=== PATIENT | male | born 1985 | race Caucasian/White ===

== ENCOUNTER 2022-08-24 09:33 | Emergency (ER) | payer MEDICAID, SELFPAY ==
[2022-08-24] VITALS (21 sets, daily range): BP systolic 127–141; BP diastolic 56–93; PULSE 100–114; RESP 16–20; TEMP 36.6; O2SAT 97–99; BMI 23.0
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
[2022-08-24 11:00] LABS: HCO3 VBG 27 mmol/L (21-28); Lactate* 0.8 mmol/L (0.5-1.9); PCO2 VBG 44 mmHG (40-50); PO2 VBG 46.3 mmHG (25-47); pH VBG 7.387 (7.32-7.43)
[2022-08-24 11:02] LABS: Basophils Absolute Auto 0.02 K/uL (0.00-0.30); Basophils Percent Auto 0.3 % (0.0-3.0); Eosinophils Absolute Auto 0.27 K/uL (0.00-0.50); Eosinophils Percent Auto 4.7 % (0.0-7.0); Hematocrit 38.8 % (37.0-53.0); Lymphocytes Absolute Auto 2.16 K/uL (0.90-2.90); Lymphocytes Percent Auto 37.6 % (20-44); Mean Corpuscular HGB Conc 34 gm/dL (32-36); Mean Corpuscular Hemoglobin 27 pg (26-34); Mean Corpuscular Volume 81 fL (80-100); Monocytes Percent Auto 16.9 % (0.0-11.0); Neutrophils Percent Auto 40.5 % (42.0-72.0); Platelet Count* 183 K/uL (140-440); RDW Coefficient of Variation % 13.6 % (11.5-15.5); Red Blood Count 4.82 m/uL (4.30-5.90); White Blood Count* 5.74 K/uL (4.50-11.00)
[2022-08-24 11:05] LABS: Slide Review Reflex No
[2022-08-24 11:17] LABS: Amphetamine Screen Urine Negative (Negative); Barbiturate Screen Urine Negative (Negative); Benzodiazepines Screen Urine Negative (Negative); Cannabinoid Screen Urine Negative (Negative); Cocaine Screen Urine Negative (Negative); Methadone Screen Urine Negative (Negative); Methamphetamines Screen Urine Negative (Negative); Opiate Screen Urine Negative (Negative); Oxycodone Screen Urine Negative (Negative); Phencyclidine Screen Urine Negative (Negative); Tricyclic Antidepressant Urine Negative (Negative)
[2022-08-24 11:21] LABS: Albumin* 3.9 g/dL (3.3-5.0); Chloride* 107 mmol/L (96-114)
[2022-08-24 11:22] LABS: Potassium* 4.3 mmol/L (3.6-5.1); Sodium* 138 mmol/L (135-149)
[2022-08-24 11:24] LABS: Alkaline Phosphatase* 173 U/L (40-150); Aspartate Amino Transferase* 38 U/L (12-35); Blood Urea Nitrogen* 11 mg/dL (5-24); Carbon Dioxide* 24 mmol/L (20-32); Creatinine* 0.4 mg/dL (0.5-1.5); Est. Creatinine Clearance* 254.52; Estimated Glomerular Filt Rate 142 ml/min; Total Protein* 6.6 g/dL (6.0-8.3)
[2022-08-24 11:25] LABS: Alanine Aminotransferase* 41 U/L (4-50); Glucose* 115 mg/dL (60-115); Magnesium* 1.7 mg/dL (1.5-2.6)
[2022-08-24 11:31] LABS: C Reactive Protein* < 0.5 mg/dL (0.5-1.0)
[2022-08-24 11:34] LABS: NT Pro B Type NatriureticPept* 355 PG/mL (0-125)
[2022-08-24 11:38] LABS: SARS PCR* Negative SARS-CoV-2 (Negative)
[2022-08-24 11:40] LABS: D Dimer Quantitative* 0.33 ug/ml (0.00-0.50)
[2022-08-24 12:00] LABS: TSH With Reflex to FT4* < 0.015 uIU/mL (0.270-4.200)
[2022-08-24 12:30] LABS: Free T4 Free Thyroxine* 5.65 ng/dL (0.70-1.85)
[2022-08-24] MEDS: PROPRANOLOL 20 MG TABLET PO (12:45)
== END 2022-08-24 14:02 | disposition home or self-care (01) ==
PROVIDERS: Emergency Provider Family Medicine
DX: R00.0 Tachycardia, unspecified (principal); E05.90 Thyrotoxicosis, unspecified without thyrotoxic crisis or storm
CPT/HCPCS: 36415; 80053; 80306; 82803; 83520; 83605; 83735; 83880; 84439; 84443; 85025; 85379; 86140; 87635; 93005; 94761; 99283; 99284; A9270